=== PATIENT | female | born 1945 | race Two or more races ===

== ENCOUNTER 2021-03-31 22:50 | Inpatient (IN) | payer MEDICARE, OTHER ==
[~2021-03-31] VITALS: Ht 162.6 cm; Wt 65.6 kg
[2021-04-01] MEDS ORDERED: NITROGLYCERIN 0.4 MG SL TAB SL PRN ×2 (12:45→14:15)
[2021-04-01] MEDS ORDERED: MORPHINE SULFATE INJECTION 2 MG/ML SYRG IV PRN ×2 (12:45→14:15)
[2021-04-01 13:00] VITALS: BP 151/79
[2021-04-01 13:08] VITALS: BP 152/77
[2021-04-01] MEDS ORDERED: METO-158 PO (13:28)
[2021-04-01] MEDS ORDERED: HYDR25TA4 PO (13:28)
[2021-04-01] MEDS ORDERED: ROSU20TA14 PO (13:28)
[2021-04-01] MEDS ORDERED: ONDANSETRON HCL 4 MG/2 ML VIAL IV PRN (14:15)
[2021-04-01] MEDS ORDERED: METOPROLOL TARTRATE 1MG/1ML-5ML VIAL IV PRN (14:15)
[2021-04-01] MEDS ORDERED: DOCUSATE SOD 100 MG CAP PO PRN (14:15)
[2021-04-01] MEDS ORDERED: MORPHINE SULFATE 4 MG/ML SYR/VIAL IV PRN (14:15)
[2021-04-01] MEDS ORDERED: PNEUMOCOCCAL VACC POLYS 25 MCG/0.5 ML VIAL IM ONE (14:15)
[2021-04-01] MEDS ORDERED: HYDROcodone-ACET 5/325MG TAB PO PRN (14:15)
[2021-04-01] MEDS ORDERED: LORazepam 0.5 MG TAB PO PRN ×2 (14:15)
[2021-04-01] MEDS: SODIUM CHLORIDE 0.9% 1,000 ML IV SCH (14:15)
[2021-04-01] MEDS ORDERED: SODIUM CHLORIDE 0.9% 1,000 ML IV SCH (14:15)
[2021-04-01] MEDS ORDERED: ENOXAPARIN SOD 80 MG/0.8ML SYRINGE SC ONE (14:15)
[2021-04-01] MEDS ORDERED: ALUM & MAG HYDROX-SIMETH LIQ(MAALOX) 30 ML PO ONE (14:15)
[2021-04-01 14:19] LABS: Basophils # (auto) 0.1 10 ^3/uL (0-0.2); Basophils % (auto) 0.7 % (0.0-2.0); Eosinophils # (auto) 0.1 10 ^3/uL (0-0.8); Eosinophils % (auto) 0.8 % (0.0-7.0); Hematocrit 37.9 % (36.0-46.0); Hemoglobin 13.2 g/dL (12.2-16.2); Lymphocytes # (auto) 1.7 10 ^3/uL (0.4-5.4); Lymphocytes % (auto) 20.7 % (10.0-50.0); Mean Corpuscular Hemoglobin 32.5 pg (28.0-32.0); Monocytes # (auto) 0.6 10 ^3/uL (0-1.3); Monocytes % (auto) 6.8 % (0.0-12.0); Neutrophils # (auto) 5.8 10 ^3/uL (1.6-8.6); Red Blood Cells 4.07 10^6/uL (4.0-5.20); Red Cell Distribution Width 13.6 % (11.8-14.3); White Blood Cell 8.2 10^3/uL (4.4-10.8)
[2021-04-01] MEDS: ENOXAPARIN SOD 80 MG/0.8ML SYRINGE SC SCH ×2 (14:30→22:02)
[2021-04-01 14:32] LABS: INR 0.98 (0.9-1.15)
[2021-04-01 14:37] LABS: BUN/Creatinine Ratio 18.8; Calcium 9.4 mg/dL (8.5-10.1); Magnesium 2.4 mg/dL (1.6-2.6); Potassium 3.7 mmol/L (3.5-5.1)
[2021-04-01 14:42] LABS: Phosphorus 3.7 mg/dL (2.5-4.90)
[2021-04-01 17:00] VITALS: BP 152/74
[2021-04-01] MEDS ORDERED: ALUM & MAG HYDROX-SIMETH LIQ(MAALOX) 30 ML PO PRN (20:00)
[2021-04-01] MEDS: MORPHINE SULFATE INJECTION 2 MG/ML SYRG IV PRN (20:36)
[2021-04-01 22:00] VITALS: BP 168/87
[2021-04-01] MEDS: metroNIDAZOLE 500MG/100ML 100 ML IV SCH (22:00)
[2021-04-01] MEDS: FAMOTIDINE (10MG/ML) 2ML VL IV SCH (22:00)
[2021-04-01] MEDS ORDERED: ENOXAPARIN SOD 80 MG/0.8ML SYRINGE SC SCH (22:00)
[2021-04-01] MEDS: METOPROLOL TARTRATE 25 MG TAB PO SCH (22:01)
[2021-04-01] MEDS: ATORVASTATIN 20 MG TAB PO SCH (22:01)
[2021-04-01] MEDS: AMIODARONE HCL 200 MG TAB PO SCH (22:01)
[2021-04-01] MEDS: hydrALAZINE HCL 20 MG/ML VL IV PRN (23:17)
[2021-04-02] MEDS: metroNIDAZOLE 500MG/100ML 100 ML IV SCH ×3 (05:07→21:43)
[2021-04-02] MEDS: hydrALAZINE HCL 20 MG/ML VL IV PRN ×2 (05:08→17:27)
[2021-04-02 05:10] VITALS: BP 156/76
[2021-04-02 05:12] LABS: Amphetamine Screen, Urine NEGATIVE (NEGATIVE); Barbiturate Scree,Urine NEGATIVE (NEGATIVE); Benzodiazephine Screen, Urine NEGATIVE (NEGATIVE); Cocaine Screen, Urine NEGATIVE (NEGATIVE); Opiate Scree,Urine NEGATIVE (NEGATIVE); Phencyclidine Screen, Urine NEGATIVE (NEGATIVE); Urine Bacteria FEW /hpf (None Seen); Urine Blood Negative /uL (Negative); Urine Mucus FEW (None Seen); Urine Specific Gravity 1.011 (1.001-1.035); Urine WBC 2 /hpf (0 - 5)
[2021-04-02 05:20] LABS: Cannabinoid Screen, Urine POSITIVE (NEGATIVE)
[2021-04-02 08:00] LABS: Basophils # (auto) 0 10 ^3/uL (0-0.2); Basophils % (auto) 0.5 % (0.0-2.0); Eosinophils # (auto) 0.1 10 ^3/uL (0-0.8); Eosinophils % (auto) 1.2 % (0.0-7.0); Hematocrit 37.9 % (36.0-46.0); Lymphocytes # (auto) 1.5 10 ^3/uL (0.4-5.4); Lymphocytes % (auto) 19.8 % (10.0-50.0); Mean Corpuscular Hemoglobin 31.9 pg (28.0-32.0); Mean Corpuscular Hgb Conc. 34.2 g/dL (32.0-36.0); Mean Corpuscular Volume 93.3 fL (80.0-100.0); Monocytes # (auto) 0.6 10 ^3/uL (0-1.3); Monocytes % (auto) 7.8 % (0.0-12.0); Neutrophils # (auto) 5.5 10 ^3/uL (1.6-8.6); Neutrophils % (auto) 70.7 % (37.0-80.0); Nucleated Red Blood Cells % 0.1 %; Red Blood Cells 4.06 10^6/uL (4.0-5.20); Red Cell Distribution Width 13.6 % (11.8-14.3); White Blood Cell 7.8 10^3/uL (4.4-10.8)
[2021-04-02 08:08] LABS: Calcium 8.8 mg/dL (8.5-10.1); Potassium 3.6 mmol/L (3.5-5.1)
[2021-04-02 08:17] LABS: Albumin 3.2 g/dL (3.4-5.0); BUN/Creatinine Ratio 23.5; Bilirubin, Total 0.4 mg/dL (0.2-1.0); Magnesium 2.1 mg/dL (1.6-2.6); Phosphorus 3.5 mg/dL (2.5-4.90); Uric Acid 4.6 mg/dL (2.6-6.0)
[2021-04-02] MEDS: ONDANSETRON HCL 4 MG/2 ML VIAL IV PRN (08:28)
[2021-04-02] MEDS: SODIUM CHLORIDE 0.9% 1,000 ML IV SCH (08:33)
[2021-04-02] MEDS: MORPHINE SULFATE INJECTION 2 MG/ML SYRG IV PRN (08:33)
[2021-04-02] MEDS: cefTRIAXone 1GM/50ML D5W 50 ML IV SCH (08:33)
[2021-04-02 08:47] LABS: Partial Thromboplastin Time 27.8 sec (23.0-31.2)
[2021-04-02] MEDS: FAMOTIDINE (10MG/ML) 2ML VL IV SCH ×2 (08:56→21:43)
[2021-04-02] MEDS: ASPirin 81 mg TAB PO SCH (08:56)
[2021-04-02] MEDS: AMIODARONE HCL 200 MG TAB PO SCH ×2 (08:57→21:44)
[2021-04-02] MEDS: METOPROLOL TARTRATE 25 MG TAB PO SCH ×2 (08:58→21:44)
[2021-04-02] MEDS: ENOXAPARIN SOD 80 MG/0.8ML SYRINGE SC SCH ×2 (08:58→21:44)
[2021-04-02 09:00] VITALS: BP 146/64
[2021-04-02] MEDS ORDERED: DOCUSATE SOD 100 MG CAP PO SCH (10:00)
[2021-04-02] MEDS ORDERED: HCTZ 25 MG TAB PO ONE (10:45)
[2021-04-02 13:00] VITALS: BP 149/63
[2021-04-02 17:00] VITALS: BP 156/90
[2021-04-02 18:00] VITALS: BP 127/61
[2021-04-02] MEDS: ATORVASTATIN 20 MG TAB PO SCH (21:44)
[2021-04-02 21:48] VITALS: BP 154/93
[2021-04-03 05:28] VITALS: BP 143/81
[2021-04-03] MEDS: metroNIDAZOLE 500MG/100ML 100 ML IV SCH ×3 (06:28→21:34)
[2021-04-03 07:22] LABS: Basophils # (auto) 0 10 ^3/uL (0-0.2); Basophils % (auto) 0.7 % (0.0-2.0); Eosinophils # (auto) 0.1 10 ^3/uL (0-0.8); Eosinophils % (auto) 0.8 % (0.0-7.0); Hematocrit 37.1 % (36.0-46.0); Hemoglobin 12.9 g/dL (12.2-16.2); Lymphocytes # (auto) 1.7 10 ^3/uL (0.4-5.4); Lymphocytes % (auto) 23.2 % (10.0-50.0); Mean Corpuscular Hemoglobin 32.7 pg (28.0-32.0); Mean Corpuscular Hgb Conc. 34.9 g/dL (32.0-36.0); Mean Corpuscular Volume 93.9 fL (80.0-100.0); Monocytes # (auto) 0.6 10 ^3/uL (0-1.3); Neutrophils % (auto) 67.3 % (37.0-80.0); Nucleated Red Blood Cells % 0.1 %; Red Blood Cells 3.96 10^6/uL (4.0-5.20); Red Cell Distribution Width 13.6 % (11.8-14.3); White Blood Cell 7.4 10^3/uL (4.4-10.8)
[2021-04-03 07:45] LABS: Chloride 104 mmol/L (98-107); Sodium 140 mmol/L (136-145)
[2021-04-03 07:53] LABS: Alanine Aminotransferase 72 U/L (13-56); Albumin 3.4 g/dL (3.4-5.0); Alkaline Phosphatase 58 U/L (45-117); Anion Gap 8 (5-15); BUN/Creatinine Ratio 19.6; Bilirubin, Total 0.5 mg/dL (0.2-1.0); Blood Urea Nitrogen 21 mg/dL (7-18); Carbon Dioxide 28 mmol/L (21-32); GFR African American 64 mL/min; GFR Non-African American 53 mL/min; Glucose 116 mg/dL (74-106); Total Protein 6.4 g/dL (6.4-8.2)
[2021-04-03 07:54] LABS: Aspartate Aminotransferase 37 U/L (15-37)
[2021-04-03 09:00] VITALS: BP 154/76
[2021-04-03] MEDS: HCTZ 25 MG TAB PO SCH (10:14)
[2021-04-03] MEDS: FAMOTIDINE (10MG/ML) 2ML VL IV SCH (10:14)
[2021-04-03] MEDS: METOPROLOL TARTRATE 25 MG TAB PO SCH ×2 (10:15→21:35)
[2021-04-03] MEDS: ASPirin 81 mg TAB PO SCH (10:15)
[2021-04-03] MEDS: ENOXAPARIN SOD 80 MG/0.8ML SYRINGE SC SCH ×2 (10:16→21:35)
[2021-04-03] MEDS: AMIODARONE HCL 200 MG TAB PO SCH ×2 (10:16→21:34)
[2021-04-03] MEDS: cefTRIAXone 1GM/50ML D5W 50 ML IV SCH (10:16)
[2021-04-03 13:25] VITALS: BP 188/92
[2021-04-03] MEDS: hydrALAZINE HCL 20 MG/ML VL IV PRN ×2 (14:00→23:01)
[2021-04-03 16:49] VITALS: BP 153/81
[2021-04-03] MEDS: ONDANSETRON HCL 4 MG/2 ML VIAL IV PRN (18:47)
[2021-04-03] MEDS: ATORVASTATIN 20 MG TAB PO SCH (21:34)
[2021-04-03 22:00] VITALS: BP 170/89
[2021-04-04 05:00] VITALS: BP 152/81
[2021-04-04 06:18] LABS: Basophils # (auto) 0.1 10 ^3/uL (0-0.2); Basophils % (auto) 0.7 % (0.0-2.0); Eosinophils # (auto) 0 10 ^3/uL (0-0.8); Eosinophils % (auto) 0.7 % (0.0-7.0); Hemoglobin 13.1 g/dL (12.2-16.2); Lymphocytes # (auto) 1.7 10 ^3/uL (0.4-5.4); Lymphocytes % (auto) 23.3 % (10.0-50.0); Mean Corpuscular Hemoglobin 32.3 pg (28.0-32.0); Mean Corpuscular Hgb Conc. 34.5 g/dL (32.0-36.0); Mean Corpuscular Volume 93.5 fL (80.0-100.0); Monocytes # (auto) 0.7 10 ^3/uL (0-1.3); Neutrophils # (auto) 4.9 10 ^3/uL (1.6-8.6); Neutrophils % (auto) 65.3 % (37.0-80.0); Nucleated Red Blood Cells % 0.1 %; Red Blood Cells 4.06 10^6/uL (4.0-5.20); White Blood Cell 7.4 10^3/uL (4.4-10.8)
[2021-04-04] MEDS: metroNIDAZOLE 500MG/100ML 100 ML IV SCH (06:29)
[2021-04-04 06:32] LABS: Potassium 3.5 mmol/L (3.5-5.1)
[2021-04-04 06:39] LABS: BUN/Creatinine Ratio 18.5; Calcium 8.9 mg/dL (8.5-10.1)
[2021-04-04] MEDS: hydrALAZINE HCL 20 MG/ML VL IV PRN (07:08)
[2021-04-04 07:34] LABS: INR 1.02 (0.9-1.15); Partial Thromboplastin Time 31.3 sec (23.0-31.2)
[2021-04-04] MEDS ORDERED: ADENOSINE 6 MG/2 ML INJ IV ONE (08:15)
[2021-04-04] MEDS ORDERED: METOPROLOL TARTRATE 1MG/1ML-5ML VIAL IV ONE (08:15)
[2021-04-04 08:30] VITALS: BP 125/80
[2021-04-04] MEDS ORDERED: VERAPAMIL 2.5MG/ML INJ 2ML VIAL IV ONE (08:58)
[2021-04-04] MEDS ORDERED: ANGIOMAX 250 MG VIAL IV ONE (08:58)
[2021-04-04] MEDS ORDERED: HEPARIN SODIUM (PORCINE) 5000 UNITS/ML 1ML VIAL ONE (08:58)
[2021-04-04] MEDS ORDERED: fentaNYL CITRATE 100 MCG/2 ML VL ONE (08:59)
[2021-04-04] MEDS ORDERED: SODIUM CHL 0.9% 0 ML ONE (09:00)
[2021-04-04] MEDS ORDERED: IODIXANOL 320MG/ML 100ML BTL IV ONE (09:00)
[2021-04-04] MEDS: cefTRIAXone 1GM/50ML D5W 50 ML IV SCH (09:00)
[2021-04-04] MEDS ORDERED: MIDAZOLAM HCL 2MG/2ML 2ml VIAL (1mg/ml) ONE (09:00)
[2021-04-04] MEDS ORDERED: LIDOCAINE 2%HCL (LOCAL ANESTH.) INJ 20ML MDV ONE (09:00)
[2021-04-04] MEDS: FAMOTIDINE (10MG/ML) 2ML VL IV SCH (10:00)
[2021-04-04 12:30] VITALS: BP 147/79
[2021-04-04 13:16] VITALS: BP 147/79
[2021-04-04] MEDS: AMIODARONE HCL 200 MG TAB PO SCH (13:48)
[2021-04-04] MEDS: METOPROLOL TARTRATE 25 MG TAB PO SCH (13:49)
[2021-04-04] MEDS: HCTZ 25 MG TAB PO SCH (13:49)
[2021-04-04] MEDS ORDERED: APIXABAN 5 MG TAB PO SCH (22:00)
[2021-04-05] MEDS ORDERED: ENOXAPARIN SOD 80 MG/0.8ML SYRINGE SC SCH (10:00)
== END 2021-04-04 15:28 | disposition home or self-care (01) | DRG 287 ==
LOC: TELE-WESTW 04-01 11:38
PROVIDERS: ADMIT Internal Medicine; ATTEND Internal Medicine
PROC: 4A023N7 Measurement of Cardiac Sampling and Pressure, Left Heart, Percutaneous Approach (ICD-10-PCS; principal; 2021-04-04)
PROC: B211YZZ Fluoroscopy of Multiple Coronary Arteries using Other Contrast (ICD-10-PCS; 2021-04-04)
DX: I48.0 Paroxysmal atrial fibrillation (principal); I16.1 Hypertensive emergency; D68.69 Other thrombophilia; I50.32 Chronic diastolic (congestive) heart failure; R65.10 Systemic inflammatory response syndrome (SIRS) of non-infectious origin without acute organ dysfunction; I13.0 Hypertensive heart and chronic kidney disease with heart failure and stage 1 through stage 4 chronic kidney disease, or unspecified chronic kidney disease; K52.9 Noninfective gastroenteritis and colitis, unspecified; I25.10 Atherosclerotic heart disease of native coronary artery without angina pectoris; E66.9 Obesity, unspecified; N18.2 Chronic kidney disease, stage 2 (mild); R79.89 Other specified abnormal findings of blood chemistry; E78.5 Hyperlipidemia, unspecified; Z79.01 Long term (current) use of anticoagulants; Z79.82 Long term (current) use of aspirin; Z82.49 Family history of ischemic heart disease and other diseases of the circulatory system; Z87.891 Personal history of nicotine dependence; Z79.899 Other long term (current) drug therapy; Z68.24 Body mass index [BMI] 24.0-24.9, adult
CPT/HCPCS: 36415; 71045; 76700; 80048; 80053; 80307; 81001; 82306; 82728; 83036; 83735; 83880; 84100; 84443; 84484; 84550; 85025; 85610; 85730; 86850; 86900; 86901; 87040; 87086; 93005; 93458; 99152; G0378; J0153; J0696; J2250; J2405; J3490; Q9967